=== PATIENT | male | born 1930 | race Caucasian/White ===

== ENCOUNTER 2017-05-19 14:09 | Day surgery (SDC) | payer MEDICARE ==
[~2017-05-19 14:09] MED LIST: ACET325 PO; ACET500 PO; ALLO300 PO; AMLO5 PO; ASCO1ER PO; BIOTENE1000 ML PO; CARB50 PO; CHOL10002 PO; CYAN1000 PO; EPOE20I SQ; FISH1000 PO; FLAX PO; GABA100 PO; GLIP10ER PO; GLIP5ER PO; HYDACE5 PO; HYDRA50 PO; IRON PO; LATA.005SO BOTHEYES; LISI5 PO; MAG DELAY70 MG PO; METF500C PO; METO25 PO; METO50 PO; MULVIT PO; NIAC500 PO; OMEP20ER PO; POTA20PAC PO; PRAZ5 PO; Prozac20 MG; RAMI5 PO; STOOL SOFTENER1 EAC2 PO; STOOL SOFTENER100 MG PO; TIMOL 0.5%-BRIM10 ML RIGHTEYE; TRAM50 PO; VITAMIN D3 PO; Vitamin C100 M1 PO; Voltaren100 GM; Voltaren100 GM TP; [UNRECOGNIZED DRUG - OTHER] PO
[2017-12-11] MEDS ORDERED: GLIM2 PO (08:15)
[2018-04-06] MEDS ORDERED: HEPARIN 50500 UNIT/5 IV (07:58)
== END 2017-05-19 16:30 | disposition home or self-care (01) ==
LOC: ATC 14:09
PROC: 30233N1 Transfusion of Nonautologous Red Blood Cells into Peripheral Vein, Percutaneous Approach (ICD-10-PCS; principal; 2017-05-19)
DX: D46.9 Myelodysplastic syndrome, unspecified (principal)
CPT/HCPCS: 36430; 86850; 86900; 86901; 86923; J1642; P9016

== ENCOUNTER → 2017-06-19 | Outpatient (CLI) | payer MEDICARE ==
[~2017-06-19] MED LIST changes: +GLIM2 PO; +HEPARIN 50500 UNIT/5 IV; +MAGCHL64ER PO
== END | disposition home or self-care (01) ==
LOC: LAB SHORT 07:16 → PLD 07:16
DX: D48.5 Neoplasm of uncertain behavior of skin (principal)
CPT/HCPCS: 88305

== ENCOUNTER → 2017-06-28 | Outpatient (CLI) | payer MEDICARE | LOC: LAB SHORT 08:56 → PLD 08:56 | DX: C44.219 Basal cell carcinoma of skin of left ear and external auricular canal (principal) | CPT/HCPCS: 88305 ==

== ENCOUNTER 2017-09-22 08:22 | Day surgery (SDC) | payer MEDICARE ==
[~2017-09-22 08:22] MED LIST changes: -GLIM2 PO; -HEPARIN 50500 UNIT/5 IV; -MAGCHL64ER PO; +TIMO.5OPS OD; -TIMOL 0.5%-BRIM10 ML RIGHTEYE
[2017-09-22] MEDS ORDERED: MAGCHL64ER PO (08:37)
== END 2017-09-22 11:00 | disposition home or self-care (01) ==
LOC: ATC 08:22 → LAB 17:30
DX: D46.9 Myelodysplastic syndrome, unspecified (principal); Z87.891 Personal history of nicotine dependence; I10 Essential (primary) hypertension; E11.9 Type 2 diabetes mellitus without complications; E78.5 Hyperlipidemia, unspecified; G47.33 Obstructive sleep apnea (adult) (pediatric)
CPT/HCPCS: 36430; 86850; 86900; 86901; 86923; J1642; J7030; P9016

== ENCOUNTER 2017-10-05 09:29 | Day surgery (SDC) | payer MEDICARE ==
[~2017-10-05] VITALS: Ht 175.3 cm; Wt 131.7 kg
[~2017-10-05 09:29] MED LIST changes: +MAGCHL64ER PO
== END 2017-10-05 12:10 | disposition home or self-care (01) ==
LOC: ORSCSDS 09:29
PROVIDERS: Ophthalmology
PROC: 08RK3JZ Replacement of Left Lens with Synthetic Substitute, Percutaneous Approach (ICD-10-PCS; principal; 2017-10-05 11:00)
DX: H25.12 Age-related nuclear cataract, left eye (principal); H21.81 Floppy iris syndrome; E66.9 Obesity, unspecified; I10 Essential (primary) hypertension; E78.5 Hyperlipidemia, unspecified; E11.9 Type 2 diabetes mellitus without complications; Z87.891 Personal history of nicotine dependence; Z68.41 Body mass index [BMI] 40.0-44.9, adult; Z79.899 Other long term (current) drug therapy
CPT/HCPCS: 82947; J2250; J7040; V2632

== ENCOUNTER 2017-10-18 07:13 | Day surgery (SDC) | payer MEDICARE | END 2017-10-18 12:10 | disposition home or self-care (01) | LOC: ATC 07:13 | DX: D46.9 Myelodysplastic syndrome, unspecified (principal); Z87.891 Personal history of nicotine dependence; E11.9 Type 2 diabetes mellitus without complications; E78.5 Hyperlipidemia, unspecified; I10 Essential (primary) hypertension; G47.33 Obstructive sleep apnea (adult) (pediatric); K21.9 Gastro-esophageal reflux disease without esophagitis | CPT/HCPCS: 36430; 86850; 86900; 86901; 86923; J1642; J7030; P9016 ==

== ENCOUNTER → 2017-12-18 | Outpatient (CLI) | payer MEDICARE ==
[~2017-12-18] MED LIST changes: +GLIM2 PO
== END | disposition home or self-care (01) ==
LOC: LAB SHORT 08:14 → PLD 08:14
DX: D04.62 Carcinoma in situ of skin of left upper limb, including shoulder (principal)
CPT/HCPCS: 88305

== ENCOUNTER 2018-04-30 11:11 | Day surgery (SDC) | payer MEDICARE ==
[2018-04-28 13:58] LABS: BASOPHILS ABSOLUTE AUTO 0.03 K/mm3 (0.00-0.23); BASOPHILS PERCENT AUTO 0 % (0-2); EOSINOPHILS ABSOLUTE AUTO 0.28 K/mm3 (0.00-0.68); EOSINOPHILS PERCENT AUTO 4 % (0-6); Hematocrit 30.1 % (37.0-53.0); Hemoglobin 8.6 g/dL (13.5-17.5); IMMATURE GRAN ABSOLUTE AUTO 0.03 K/mm3 (0.00-0.10); IMMATURE GRAN PERCENT AUTO 0 % (0-1); LYMPHOCYTES ABSOLUTE AUTO 0.92 K/mm3 (0.84-5.20); LYMPHOCYTES PERCENT AUTO 13 % (21-46); MONOCYTES ABSOLUTE AUTO 0.68 K/mm3 (0.16-1.47); MONOCYTES PERCENT AUTO 10 % (4-13); Mean Corpuscular HGB 29.4 pg (26.0-34.0); Mean Corpuscular HGB Conc 28.6 g/dL (31.5-36.5); Mean Corpuscular Volume 103 fL (80-100); Mean Platelet Volume 10.7 fL (9.1-12.4); NEUTROPHILS ABSOLUTE AUTO 5.14 K/mm3 (1.96-9.15); NEUTROPHILS PERCENT AUTO 73 % (41-73); Platelet Count 230 K/mm3 (150-400); RDW Coefficient Variation 17.6 % (11.7-14.2); RDW Standard Deviation 65.9 fL (35.1-46.3); Red Blood Cell Count 2.93 M/mm3 (4.30-5.90); White Blood Cell Count 7.08 K/mm3 (4.00-11.30)
[~2018-04-30 11:11] MED LIST changes: +HEPARIN 50500 UNIT/5 IV; -TIMO.5OPS OD; +TIMOL 0.5%-BRIM10 ML RIGHTEYE
== END 2018-04-30 11:47 | disposition home or self-care (01) ==
LOC: ATC 11:11 → LAB 16:21
PROVIDERS: Internal Medicine Hematology & Oncology
DX: D46.9 Myelodysplastic syndrome, unspecified (principal)
CPT/HCPCS: 36415; 36430; 85025; 86850; 86900; 86901; 86923; J1642; P9016

== ENCOUNTER → 2018-06-19 | Outpatient (CLI) | payer MEDICARE | END | disposition home or self-care (01) | LOC: LAB SHORT 07:29 → PLD 07:29 | DX: D48.5 Neoplasm of uncertain behavior of skin (principal); C44.41 Basal cell carcinoma of skin of scalp and neck | CPT/HCPCS: 88305 ==

== ENCOUNTER → 2018-06-28 | Outpatient (CLI) | payer MEDICARE ==
[2018-06-28 18:11] LABS: BASOPHILS ABSOLUTE AUTO 0.04 K/mm3 (0.00-0.23); BASOPHILS PERCENT AUTO 1 % (0-2); EOSINOPHILS ABSOLUTE AUTO 0.33 K/mm3 (0.00-0.68); EOSINOPHILS PERCENT AUTO 5 % (0-6); Hemoglobin 8.9 g/dL (13.5-17.5); IMMATURE GRAN ABSOLUTE AUTO 0.02 K/mm3 (0.00-0.10); IMMATURE GRAN PERCENT AUTO 0 % (0-1); LYMPHOCYTES ABSOLUTE AUTO 0.73 K/mm3 (0.84-5.20); LYMPHOCYTES PERCENT AUTO 12 % (21-46); MONOCYTES ABSOLUTE AUTO 0.65 K/mm3 (0.16-1.47); MONOCYTES PERCENT AUTO 10 % (4-13); Mean Corpuscular HGB 28.7 pg (26.0-34.0); Mean Corpuscular HGB Conc 27.8 g/dL (31.5-36.5); Mean Corpuscular Volume 103 fL (80-100); Mean Platelet Volume 12.5 fL (9.1-12.4); NEUTROPHILS ABSOLUTE AUTO 4.59 K/mm3 (1.96-9.15); NEUTROPHILS PERCENT AUTO 72 % (41-73); NRBC ABSOLUTE 0.02 K/mm3 (0.00-0.02); NRBC Auto 0.3 /100 WBC (0.0-0.2); Platelet Count 194 K/mm3 (150-400); RDW Coefficient Variation 18.2 % (11.7-14.2); RDW Standard Deviation 67.1 fL (35.1-46.3); White Blood Cell Count 6.36 K/mm3 (4.00-11.30)
== END | disposition home or self-care (01) ==
LOC: LAB 17:31 → LAB SHORT 17:31
PROVIDERS: Internal Medicine Hematology & Oncology
DX: D46.9 Myelodysplastic syndrome, unspecified (principal)
CPT/HCPCS: 85025